=== PATIENT | male | born 1955 | race Caucasian/White ===

== ENCOUNTER 2019-02-09 14:58 | Inpatient (IN) | payer MEDICARE, MEDICAID ==
[~2019-02-09] VITALS: Ht 170.2 cm; Wt 73.8 kg
[2019-02-09] MEDS ORDERED: NIFE30TA5 PO (15:18)
[2019-02-09] MEDS ORDERED: PANT40TA25 PO (15:18)
[2019-02-09] MEDS ORDERED: CARV3 PO (15:18)
[2019-02-09] MEDS ORDERED: SUCR1TAB PO (15:18)
[2019-02-09] MEDS ORDERED: APIX5TAB PO (15:18)
[2019-02-09] MEDS ORDERED: FOLI0.8T22 PO (15:18)
[2019-02-09 16:08] LABS: EOSINOPHILS % (AUTO) 2.6 % (1.0-6.0); HEMATOCRIT 23.2 % (41-53); HEMOGLOBIN 7.3 g/dL (13.5-17.5); LYMPHOCYTES # (AUTO) 0.5 K/uL (1.0-4.8); LYMPHOCYTES % (AUTO) 9.2 % (22.0-44.0); MEAN CORPUSCULAR HEMOGLOBIN 30.1 pg (26.0-34.0); MEAN CORPUSCULAR HGB CONC 31.3 G/dL (31.0-37.0); MEAN CORPUSCULAR VOLUME 96 fL (80-100); MONOCYTES # (AUTO) 0.4 K/uL (0.1-1.0); MONOCYTES % (AUTO) 6.3 % (2.0-9.0); NEUTROPHILS # (AUTO) 4.7 K/uL (1.8-7.7); NEUTROPHILS % (AUTO) 80.9 % (40.0-70.0); PLATELET COUNT (AUTO) 122 K/uL (150-450); RED BLOOD CELL COUNT(AUTO) 2.41 MIL/uL (4.50-5.90); RED CELL DISTRIBUTION WIDTH 19.6 % (11.5-14.5)
[2019-02-09 16:20] LABS: CALCIUM, TOTAL 8.2 mg/dL (8.8-10.5); CREATININE 6.66 mg/dL (0.60-1.30)
[2019-02-09 16:26] LABS: ALBUMIN 2.1 g/dL (3.4-5.0); BILIRUBIN,TOTAL 0.7 mg/dL (0.1-1.0); TOTAL PROTEIN, SERUM 7.2 g/dL (6.4-8.2)
[2019-02-09 16:29] LABS: LACTIC ACID 0.9 mmol/L (0.4-2.0)
[2019-02-09] MEDS ORDERED: VANCOMYCIN HCL 1 GM/D5% WATER 200 ML IV ONE (17:00)
[2019-02-09] MEDS ORDERED: 0.9% SODIUM CHLORIDE 10 ML SYRINGE IVP PRN (17:00)
[2019-02-09] MEDS ORDERED: ONDANSETRON HCL 4 MG/2 ML VIAL IVP PRN (17:00)
[2019-02-09] MEDS ORDERED: ACETAMINOPHEN 325 MG TABLET PO PRN (17:00)
[2019-02-09 20:25] VITALS: BP 149/90
[2019-02-10 00:40] VITALS: BP 156/82
[2019-02-10] MEDS ORDERED: OxyCODONE HCL/ACETAMINOPHEN 5-325 MG TABLET PO PRN (02:45)
[2019-02-10] MEDS ORDERED: 0.9% SODIUM CHLORIDE 10 ML SYRINGE IVP PRN (02:45)
[2019-02-10] MEDS ORDERED: VANCOMYCIN HCL 1 GM/D5% WATER 200 ML IV PRN (03:30)
[2019-02-10] MEDS: OxyCODONE HCL/ACETAMINOPHEN 5-325 MG TABLET PO PRN (03:42)
[2019-02-10 03:49] VITALS: BP 149/87
[2019-02-10 07:28] VITALS: BP 167/88
[2019-02-10] MEDS ORDERED: FAMOTIDINE 20 MG TABLET PO SCH (09:00)
[2019-02-10] MEDS ORDERED: DOCUSATE SODIUM 100 MG CAPSULE PO SCH (09:00)
[2019-02-10 11:10] VITALS: BP 152/78
[2019-02-10] MEDS ORDERED: ACETAMINOPHEN 325 MG TABLET PO PRN (11:45)
[2019-02-10] MEDS ORDERED: DOCUSATE SODIUM 100 MG CAPSULE PO PRN (11:45)
[2019-02-10] MEDS ORDERED: CefTRIAXone 1 GM/DEXTROSE 50 ML IV SCH (12:00)
[2019-02-10 12:15] LABS: BASOPHILS % (AUTO) 1.5 % (0.0-2.0); EOSINOPHILS % (AUTO) 4.5 % (1.0-6.0); HEMATOCRIT 22.8 % (41-53); HEMOGLOBIN 7.4 g/dL (13.5-17.5); LYMPHOCYTES # (AUTO) 0.6 K/uL (1.0-4.8); LYMPHOCYTES % (AUTO) 12.9 % (22.0-44.0); MEAN CORPUSCULAR HEMOGLOBIN 30.7 pg (26.0-34.0); MEAN CORPUSCULAR HGB CONC 32.4 G/dL (31.0-37.0); MEAN CORPUSCULAR VOLUME 95 fL (80-100); MONOCYTES # (AUTO) 0.3 K/uL (0.1-1.0); NEUTROPHILS # (AUTO) 3.6 K/uL (1.8-7.7); NEUTROPHILS % (AUTO) 75.1 % (40.0-70.0); PLATELET COUNT (AUTO) 111 K/uL (150-450); RED CELL DISTRIBUTION WIDTH 19.5 % (11.5-14.5)
[2019-02-10 12:35] LABS: CALCIUM, TOTAL 8.3 mg/dL (8.8-10.5); CREATININE 7.32 mg/dL (0.60-1.30); POTASSIUM 5.4 mmol/L (3.5-5.1)
[2019-02-10] MEDS ORDERED: SODIUM CHLORIDE 0.9% 500 ML IV ONE (12:39)
[2019-02-10] MEDS: PANTOPRAZOLE SODIUM 40 MG DR TABLET PO SCH (12:53)
[2019-02-10 13:14] LABS: % IRON SATURATION 30.4 % (30-44)
[2019-02-10 15:15] VITALS: BP 147/83
[2019-02-10] MEDS ORDERED: EPOETIN ALFA 10,000 UNITS/ML VIAL SQ ONE (15:30)
[2019-02-10] MEDS ORDERED: SODIUM POLYSTYRENE SULFONATE 15 GM/60 ML SUSPENSION BOTTLE PO ONE (16:00)
[2019-02-10] MEDS: FERROUS SULFATE 325 MG EC TABLET PO SCH (16:58)
[2019-02-10] MEDS: ONDANSETRON HCL 4 MG/2 ML VIAL IVP PRN (18:31)
[2019-02-10] MEDS: CefTAZidime PENTAHYDRATE 0.5 GM in DEXTROSE 5%-WATER 50 ML IV SCH (20:25)
[2019-02-10 20:28] VITALS: BP 151/82
[2019-02-11 05:15] VITALS: BP 148/86
[2019-02-11 06:03] LABS: BASOPHILS % (AUTO) 1.3 % (0.0-2.0); HEMATOCRIT 22.7 % (41-53); HEMOGLOBIN 7.5 g/dL (13.5-17.5); LYMPHOCYTES # (AUTO) 0.7 K/uL (1.0-4.8); LYMPHOCYTES % (AUTO) 12.7 % (22.0-44.0); MEAN CORPUSCULAR HEMOGLOBIN 31.1 pg (26.0-34.0); MEAN CORPUSCULAR HGB CONC 32.9 G/dL (31.0-37.0); MEAN CORPUSCULAR VOLUME 94 fL (80-100); MONOCYTES # (AUTO) 0.4 K/uL (0.1-1.0); MONOCYTES % (AUTO) 7.7 % (2.0-9.0); NEUTROPHILS # (AUTO) 3.9 K/uL (1.8-7.7); NEUTROPHILS % (AUTO) 75.3 % (40.0-70.0); PLATELET COUNT (AUTO) 112 K/uL (150-450); RED CELL DISTRIBUTION WIDTH 19.3 % (11.5-14.5)
[2019-02-11 06:17] LABS: CALCIUM, TOTAL 8.2 mg/dL (8.8-10.5); CREATININE 8.24 mg/dL (0.60-1.30); MAGNESIUM 2.2 mg/dL (1.80-2.40); PHOSPHORUS 8.6 mg/dL (2.5-4.9); VANCOMYCIN,RANDOM 23.7 mcg/mL (25.0-50.0)
[2019-02-11 06:34] LABS: POTASSIUM 5.9 mmol/L (3.5-5.1)
[2019-02-11] MEDS: FERROUS SULFATE 325 MG EC TABLET PO SCH (08:00)
[2019-02-11 08:26] VITALS: BP 145/89
[2019-02-11] MEDS: NIFEdipine 30 MG ER TABLET PO SCH ×2 (09:00→16:04)
[2019-02-11] MEDS: MULTIVITAMINS WITH MINERALS, THERAPEUTIC TABLET PO SCH (09:00)
[2019-02-11] MEDS: PANTOPRAZOLE SODIUM 40 MG DR TABLET PO SCH (09:00)
[2019-02-11 11:47] VITALS: BP 153/104
[2019-02-11 11:57] LABS: INR 1.1 (0.9-1.1); PROTHROMBIN TIME 11.6 SEC (9.4-11.6)
[2019-02-11] MEDS ORDERED: LIDOCAINE/PF 1% 5 ML VIAL ONE (13:43)
[2019-02-11] MEDS ORDERED: HEPARIN SODIUM 1000 UNITS/NS 500 ML ONE (13:43)
[2019-02-11] MEDS ORDERED: NALOXONE HCL 0.4 MG/ML VIAL ONE (13:54)
[2019-02-11] MEDS ORDERED: MIDAZOLAM HCL 2 MG/2 ML VIAL ONE (13:54)
[2019-02-11] MEDS ORDERED: FentaNYL CITRATE-PF 100 MCG/2 ML VIAL ONE (13:54)
[2019-02-11] MEDS ORDERED: IOHEXOL 180 MG/ML 20 ML VIAL ONE (14:44)
[2019-02-11] MEDS ORDERED: SODIUM ZIRCONIUM CYCLOSILICATE 5 GM POWDER PACKET PO ONE (15:00)
[2019-02-11] MEDS ORDERED: HEPARIN SODIUM,PORCINE 1,000 UNITS/ML 10 ML VIAL ONE (15:21)
[2019-02-11] MEDS: OxyCODONE HCL/ACETAMINOPHEN 5-325 MG TABLET PO PRN (16:04)
[2019-02-11] MEDS ORDERED: HEPARIN SODIUM,PORCINE 1,000 UNITS/ML VIAL IVP ONE (17:23)
[2019-02-11] MEDS ORDERED: CloNIDine HCL 0.1 MG TABLET PO ONE (17:45)
[2019-02-11] MEDS: SEVELAMER CARBONATE 800 MG TABLET PO SCH (18:05)
[2019-02-11] MEDS ORDERED: DESMOPRESSIN ACETATE 20 MCG in SODIUM CHLORIDE 0.9% 50 ML IV ONE (18:30)
[2019-02-11 19:16] LABS: BASOPHILS % (AUTO) 1.5 % (0.0-2.0); EOSINOPHILS % (AUTO) 1.9 % (1.0-6.0); HEMATOCRIT 24.3 % (41-53); HEMOGLOBIN 8.1 g/dL (13.5-17.5); LYMPHOCYTES # (AUTO) 0.6 K/uL (1.0-4.8); LYMPHOCYTES % (AUTO) 9.2 % (22.0-44.0); MEAN CORPUSCULAR HEMOGLOBIN 31.4 pg (26.0-34.0); MEAN CORPUSCULAR HGB CONC 33.3 G/dL (31.0-37.0); MEAN CORPUSCULAR VOLUME 94 fL (80-100); MONOCYTES # (AUTO) 0.3 K/uL (0.1-1.0); MONOCYTES % (AUTO) 5.6 % (2.0-9.0); NEUTROPHILS # (AUTO) 4.9 K/uL (1.8-7.7); NEUTROPHILS % (AUTO) 81.8 % (40.0-70.0); PLATELET COUNT (AUTO) 124 K/uL (150-450); RED BLOOD CELL COUNT(AUTO) 2.58 MIL/uL (4.50-5.90); RED CELL DISTRIBUTION WIDTH 19.3 % (11.5-14.5)
[2019-02-11] MEDS: CefTAZidime PENTAHYDRATE 0.5 GM in DEXTROSE 5%-WATER 50 ML IV SCH (20:16)
[2019-02-11] MEDS ORDERED: SODIUM CHLORIDE 0.9% 2,000 ML IV ONE (21:22)
[2019-02-12] VITALS (8 sets, daily range): BP systolic 114–157; BP diastolic 70–95
[2019-02-12] MEDS ORDERED: VANCOMYCIN HCL 1 GM/D5% WATER 200 ML IV ONE (04:00)
[2019-02-12 05:13] LABS: BASOPHILS % (AUTO) 1.4 % (0.0-2.0); EOSINOPHILS % (AUTO) 2.8 % (1.0-6.0); HEMATOCRIT 22.1 % (41-53); HEMOGLOBIN 7.2 g/dL (13.5-17.5); LYMPHOCYTES # (AUTO) 0.5 K/uL (1.0-4.8); LYMPHOCYTES % (AUTO) 11.1 % (22.0-44.0); MEAN CORPUSCULAR HEMOGLOBIN 30.7 pg (26.0-34.0); MEAN CORPUSCULAR HGB CONC 32.7 G/dL (31.0-37.0); MEAN CORPUSCULAR VOLUME 94 fL (80-100); MONOCYTES # (AUTO) 0.4 K/uL (0.1-1.0); MONOCYTES % (AUTO) 8.7 % (2.0-9.0); NEUTROPHILS # (AUTO) 3.6 K/uL (1.8-7.7); PLATELET COUNT (AUTO) 103 K/uL (150-450); RED BLOOD CELL COUNT(AUTO) 2.35 MIL/uL (4.50-5.90); RED CELL DISTRIBUTION WIDTH 19.1 % (11.5-14.5)
[2019-02-12 05:27] LABS: CALCIUM, TOTAL 8.4 mg/dL (8.8-10.5); CREATININE 7.01 mg/dL (0.60-1.30); POTASSIUM 5.2 mmol/L (3.5-5.1)
[2019-02-12] MEDS: SEVELAMER CARBONATE 800 MG TABLET PO SCH ×3 (07:32→17:30)
[2019-02-12] MEDS: PANTOPRAZOLE SODIUM 40 MG DR TABLET PO SCH (07:33)
[2019-02-12] MEDS: MULTIVITAMINS WITH MINERALS, THERAPEUTIC TABLET PO SCH (07:33)
[2019-02-12] MEDS: NIFEdipine 30 MG ER TABLET PO SCH (07:33)
[2019-02-12] MEDS ORDERED: FentaNYL CITRATE-PF 100 MCG/2 ML VIAL IVP ONE (12:00)
[2019-02-12] MEDS ORDERED: CALCIUM CHLORIDE 100 MG/ML 10 ML SYRINGE IVP ONE (12:00)
[2019-02-12] MEDS ORDERED: MIDAZOLAM HCL 2 MG/2 ML VIAL IVP ONE (12:00)
[2019-02-12] MEDS ORDERED: LIDOCAINE/PF 2% 5 ML VIAL INJ ONE (12:00)
[2019-02-12] MEDS ORDERED: HEPARIN SODIUM,PORCINE 1,000 UNITS/ML 10 ML VIAL IVP ONE (12:00)
[2019-02-12] MEDS ORDERED: EPHEDrine SULFATE 50 MG/ML VIAL IM ONE (12:00)
[2019-02-12] MEDS ORDERED: 0.9% SODIUM CHLORIDE 10 ML VIAL IVP ONE (12:00)
[2019-02-12] MEDS ORDERED: MORPHINE SULFATE 4 MG/ML SYRINGE IVP ONE (12:00)
[2019-02-12] MEDS: ONDANSETRON HCL 4 MG/2 ML VIAL IVP PRN (12:23)
[2019-02-12] MEDS ORDERED: LIDOCAINE/PF 1% 30 ML VIAL ONE (13:39)
[2019-02-12] MEDS ORDERED: SODIUM CHLORIDE 0.9% 500 ML IV ONE (13:58)
[2019-02-12] MEDS ORDERED: BACITRACIN 50,000 UNITS/VIAL ONE ×2 (14:50→17:27)
[2019-02-12] MEDS ORDERED: SODIUM CHLORIDE 0.9% 1,000 ML IV ONE (15:40)
[2019-02-12] MEDS ORDERED: FentaNYL CITRATE-PF 100 MCG/2 ML VIAL IVP PRN (16:15)
[2019-02-12] MEDS ORDERED: HYDROmorphone 2 MG/ML SYRINGE IVP PRN (16:15)
[2019-02-12] MEDS ORDERED: MEPERIDINE-PF 25 MG/ML VIAL IVP PRN (16:15)
[2019-02-12] MEDS ORDERED: TRANEXAMIC ACID 1,000 MG in DEXTROSE 5%-WATER 50 ML IV ONE (16:30)
[2019-02-12] MEDS ORDERED: SODIUM BICARBONATE [ADULT] 8.4% 50 MEQ/50 ML SYRINGE IVP ONE (16:32)
[2019-02-12 17:16] LABS: ABG A-A DIFF O2 537.9 mmHg (10-20.0); ABG BASE EXCESS -1.8 mmol/L (-2.0-3.0); ABG CARBOXYHEMOGLOBIN 0.7 % (0.0-1.5); ABG HCO3 23.2 mmol/L (22.0-26.0); ABG METHEMOGLOBIN 0.3 % (0.0-1.5); ABG OXYGEN SATURATION 98.9 % (95.0-98.0); ABG OXYHEMOGLOBIN 97.9 % (94.0-100.0); ABG PCO2 36 mmHg (35-45); ABG PH 7.415 (7.35-7.450); ABG TOTAL HEMOGLOBIN 9.2 G/dL (12.0-18.0); PO2, ARTERIAL BG 140.8 mmHg (79.0-87.0); SOURCE, BLOOD GAS ARTERIAL; TEMPERATURE, FAHRENHEIT, BG 97.2 FAHREN (96.0-98.6)
[2019-02-12 17:18] LABS: SITE, BLOOD GAS RT RADIAL
[2019-02-12 17:19] LABS: O2 DEVICE,BLOOD GAS VENTILATOR (ROOM AIR); PEEP,BG 5 cm H2O; VT, ABG 600 ml
[2019-02-12] MEDS ORDERED: SODIUM CL IRRIG SOLN BAG 3,000 ML IRRIG ONE (17:28)
[2019-02-12] MEDS ORDERED: PROTAMINE SULFATE 10 MG/ML 5 ML VIAL IVP ONE (17:45)
[2019-02-12] MEDS ORDERED: PROTAMINE SULFATE 10 MG/ML 5 ML VIAL ONE (17:48)
[2019-02-12] MEDS ORDERED: SODIUM CHLORIDE 0.9% 50 ML ONE (17:50)
[2019-02-12] MEDS ORDERED: SUGAMMADEX SODIUM 200 MG/2 ML VIAL IVP ONE (17:56)
[2019-02-12] MEDS: CefTRIAXone SODIUM 2 GM in DEXTROSE 5%-WATER 50 ML IV SCH (18:00)
[2019-02-12] MEDS ORDERED: DESMOPRESSIN ACETATE 20 MCG in SODIUM CHLORIDE 0.9% 50 ML IV ONE (18:15)
[2019-02-12] MEDS: OXYGEN THERAPY IH SCH (20:00)
[2019-02-12 20:02] LABS: CALCIUM, TOTAL 8.9 mg/dL (8.8-10.5); CREATININE 7.6 mg/dL (0.60-1.30); INR 1.3 (0.9-1.1); POTASSIUM 5.7 mmol/L (3.5-5.1); PROTHROMBIN TIME 12.7 SEC (9.4-11.6)
[2019-02-12 20:06] LABS: BASOPHILS % (AUTO) 1.2 % (0.0-2.0); EOSINOPHILS % (AUTO) 1.9 % (1.0-6.0); HEMATOCRIT 28.8 % (41-53); HEMOGLOBIN 9.2 g/dL (13.5-17.5); LYMPHOCYTES # (AUTO) 1.7 K/uL (1.0-4.8); LYMPHOCYTES % (AUTO) 15.4 % (22.0-44.0); MEAN CORPUSCULAR HEMOGLOBIN 30.4 pg (26.0-34.0); MEAN CORPUSCULAR HGB CONC 31.8 G/dL (31.0-37.0); MEAN CORPUSCULAR VOLUME 96 fL (80-100); MONOCYTES # (AUTO) 0.7 K/uL (0.1-1.0); MONOCYTES % (AUTO) 6.2 % (2.0-9.0); NEUTROPHILS # (AUTO) 8.3 K/uL (1.8-7.7); NEUTROPHILS % (AUTO) 75.3 % (40.0-70.0); PLATELET COUNT (AUTO) 138 K/uL (150-450); RED BLOOD CELL COUNT(AUTO) 3.02 MIL/uL (4.50-5.90); RED CELL DISTRIBUTION WIDTH 18.8 % (11.5-14.5)
[2019-02-12 20:08] LABS: BILIRUBIN,TOTAL 0.9 mg/dL (0.1-1.0); TOTAL PROTEIN, SERUM 6.9 g/dL (6.4-8.2)
[2019-02-12 20:31] LABS: FIBRINOGEN 216 mg/dL (200-400)
[2019-02-12 20:51] LABS: FIBRIN SPLIT PRODUCTS Greater than 40 mcg/mL (<10)
[2019-02-12] MEDS ORDERED: SODIUM CHLORIDE 0.9% 2,000 ML ONE (22:20)
[2019-02-13] VITALS: BP 150/88
[2019-02-13 04:00] VITALS: BP 154/100
[2019-02-13 05:50] LABS: EOSINOPHILS % (AUTO) 1.5 % (1.0-6.0); HEMATOCRIT 22.6 % (41-53); HEMOGLOBIN 7.6 g/dL (13.5-17.5); LYMPHOCYTES # (AUTO) 0.6 K/uL (1.0-4.8); LYMPHOCYTES % (AUTO) 8.3 % (22.0-44.0); MEAN CORPUSCULAR HEMOGLOBIN 30.7 pg (26.0-34.0); MEAN CORPUSCULAR HGB CONC 33.4 G/dL (31.0-37.0); MEAN CORPUSCULAR VOLUME 92 fL (80-100); MONOCYTES # (AUTO) 0.4 K/uL (0.1-1.0); MONOCYTES % (AUTO) 6.1 % (2.0-9.0); NEUTROPHILS # (AUTO) 5.5 K/uL (1.8-7.7); NEUTROPHILS % (AUTO) 83.1 % (40.0-70.0); PLATELET COUNT (AUTO) 112 K/uL (150-450); RED BLOOD CELL COUNT(AUTO) 2.47 MIL/uL (4.50-5.90); RED CELL DISTRIBUTION WIDTH 17.1 % (11.5-14.5)
[2019-02-13 06:00] LABS: CALCIUM, TOTAL 8.3 mg/dL (8.8-10.5); CREATININE 6.45 mg/dL (0.60-1.30); POTASSIUM 5.5 mmol/L (3.5-5.1)
[2019-02-13 08:00] VITALS: BP 184/105
[2019-02-13] MEDS: OXYGEN THERAPY IH SCH ×2 (08:00→20:00)
[2019-02-13] MEDS: PANTOPRAZOLE SODIUM 40 MG DR TABLET PO SCH (08:13)
[2019-02-13] MEDS: MULTIVITAMINS WITH MINERALS, THERAPEUTIC TABLET PO SCH (08:13)
[2019-02-13] MEDS: NIFEdipine 30 MG ER TABLET PO SCH (08:13)
[2019-02-13] MEDS: SEVELAMER CARBONATE 800 MG TABLET PO SCH ×3 (08:13→18:22)
[2019-02-13] MEDS: HydrALAZINE HCL 20 MG/ML VIAL IVP PRN (08:14)
[2019-02-13] MEDS ORDERED: SODIUM CITRATE 4% CATH FLUSH 5 ML SYRINGE IVP ONE ×2 (11:45)
[2019-02-13 12:00] VITALS: BP 163/101
[2019-02-13] MEDS ORDERED: SODIUM CHLORIDE 0.9% 2,000 ML ONE (12:12)
[2019-02-13] MEDS ORDERED: LEVOFLOXACIN 250 MG TABLET PO ONE (15:30)
[2019-02-13 16:00] VITALS: BP 133/75
[2019-02-13] MEDS: CefTRIAXone SODIUM 2 GM in DEXTROSE 5%-WATER 50 ML IV SCH (18:23)
[2019-02-13 20:00] VITALS: BP 125/81
[2019-02-14] VITALS (16 sets, daily range): BP systolic 126–169; BP diastolic 79–108
[2019-02-14] MEDS: OxyCODONE HCL/ACETAMINOPHEN 5-325 MG TABLET PO PRN (02:36)
[2019-02-14 05:39] LABS: BASOPHILS % (AUTO) 0.8 % (0.0-2.0); LYMPHOCYTES # (AUTO) 0.6 K/uL (1.0-4.8); LYMPHOCYTES % (AUTO) 11.8 % (22.0-44.0); MEAN CORPUSCULAR HEMOGLOBIN 31.9 pg (26.0-34.0); MEAN CORPUSCULAR HGB CONC 34.6 G/dL (31.0-37.0); MEAN CORPUSCULAR VOLUME 92 fL (80-100); MONOCYTES # (AUTO) 0.4 K/uL (0.1-1.0); MONOCYTES % (AUTO) 9.4 % (2.0-9.0); NEUTROPHILS # (AUTO) 3.5 K/uL (1.8-7.7); PLATELET COUNT (AUTO) 114 K/uL (150-450); RED BLOOD CELL COUNT(AUTO) 1.96 MIL/uL (4.50-5.90); RED CELL DISTRIBUTION WIDTH 17.6 % (11.5-14.5)
[2019-02-14 05:43] LABS: HEMOGLOBIN 6.2 g/dL (13.5-17.5)
[2019-02-14 05:45] LABS: CALCIUM, TOTAL 8.2 mg/dL (8.8-10.5); CREATININE 5.26 mg/dL (0.60-1.30); POTASSIUM 4.8 mmol/L (3.5-5.1)
[2019-02-14] MEDS: OXYGEN THERAPY IH SCH ×2 (08:00→20:00)
[2019-02-14] MEDS: PANTOPRAZOLE SODIUM 40 MG DR TABLET PO SCH (08:14)
[2019-02-14] MEDS: SEVELAMER CARBONATE 800 MG TABLET PO SCH ×3 (08:14→18:27)
[2019-02-14] MEDS: MULTIVITAMINS WITH MINERALS, THERAPEUTIC TABLET PO SCH (08:14)
[2019-02-14] MEDS: NIFEdipine 30 MG ER TABLET PO SCH (08:15)
[2019-02-14] MEDS ORDERED: SODIUM CHLORIDE 0.9% 250 ML IV ONE (10:42)
[2019-02-14] MEDS: HydrALAZINE HCL 20 MG/ML VIAL IVP PRN (14:27)
[2019-02-14 17:51] LABS: BASOPHILS % (AUTO) 0.4 % (0.0-2.0); EOSINOPHILS % (AUTO) 1.9 % (1.0-6.0); HEMATOCRIT 24.1 % (41-53); HEMOGLOBIN 8.1 g/dL (13.5-17.5); LYMPHOCYTES # (AUTO) 0.5 K/uL (1.0-4.8); MEAN CORPUSCULAR HEMOGLOBIN 31.2 pg (26.0-34.0); MEAN CORPUSCULAR HGB CONC 33.8 G/dL (31.0-37.0); MEAN CORPUSCULAR VOLUME 92 fL (80-100); MONOCYTES # (AUTO) 0.4 K/uL (0.1-1.0); MONOCYTES % (AUTO) 7.1 % (2.0-9.0); NEUTROPHILS # (AUTO) 4.3 K/uL (1.8-7.7); NEUTROPHILS % (AUTO) 81.6 % (40.0-70.0); PLATELET COUNT (AUTO) 128 K/uL (150-450); RED BLOOD CELL COUNT(AUTO) 2.61 MIL/uL (4.50-5.90); RED CELL DISTRIBUTION WIDTH 17.4 % (11.5-14.5)
[2019-02-14] MEDS: CefTRIAXone SODIUM 2 GM in DEXTROSE 5%-WATER 50 ML IV SCH (18:25)
[2019-02-15] VITALS (9 sets, daily range): BP systolic 135–181; BP diastolic 72–111
[2019-02-15 07:36] LABS: HEMATOCRIT 21.8 % (41-53); HEMOGLOBIN 7.3 g/dL (13.5-17.5); MEAN CORPUSCULAR HEMOGLOBIN 30.9 pg (26.0-34.0); MEAN CORPUSCULAR HGB CONC 33.5 G/dL (31.0-37.0); MEAN CORPUSCULAR VOLUME 92 fL (80-100); NEUTROPHILS % (AUTO) 81.5 % (40.0-70.0); PLATELET COUNT (AUTO) 136 K/uL (150-450); RED BLOOD CELL COUNT(AUTO) 2.36 MIL/uL (4.50-5.90); RED CELL DISTRIBUTION WIDTH 17.3 % (11.5-14.5)
[2019-02-15 07:37] LABS: BASOPHILS % (AUTO) 0.9 % (0.0-2.0); EOSINOPHILS % (AUTO) 3.7 % (1.0-6.0); LYMPHOCYTES # (AUTO) 0.4 K/uL (1.0-4.8); LYMPHOCYTES % (AUTO) 7.6 % (22.0-44.0); MONOCYTES # (AUTO) 0.3 K/uL (0.1-1.0); MONOCYTES % (AUTO) 6.3 % (2.0-9.0); NEUTROPHILS # (AUTO) 4.1 K/uL (1.8-7.7)
[2019-02-15 07:46] LABS: CALCIUM, TOTAL 8.7 mg/dL (8.8-10.5); CREATININE 6.68 mg/dL (0.60-1.30); POTASSIUM 4.9 mmol/L (3.5-5.1)
[2019-02-15] MEDS: OXYGEN THERAPY IH SCH ×2 (08:00→20:00)
[2019-02-15] MEDS: SEVELAMER CARBONATE 800 MG TABLET PO SCH ×3 (08:00→18:20)
[2019-02-15] MEDS: LEVOFLOXACIN 500 MG TABLET PO SCH (10:09)
[2019-02-15] MEDS: PANTOPRAZOLE SODIUM 40 MG DR TABLET PO SCH (10:09)
[2019-02-15] MEDS: MULTIVITAMINS WITH MINERALS, THERAPEUTIC TABLET PO SCH (10:13)
[2019-02-15] MEDS: NIFEdipine 30 MG ER TABLET PO SCH ×2 (10:14→21:22)
[2019-02-15] MEDS: HydrALAZINE HCL 20 MG/ML VIAL IVP PRN (10:52)
[2019-02-15] MEDS: CefTRIAXone SODIUM 2 GM in DEXTROSE 5%-WATER 50 ML IV SCH (18:20)
[2019-02-16] VITALS (14 sets, daily range): BP systolic 131–187; BP diastolic 71–111
[2019-02-16 06:40] LABS: BASOPHILS % (AUTO) 0.7 % (0.0-2.0); EOSINOPHILS % (AUTO) 4.2 % (1.0-6.0); HEMATOCRIT 22.8 % (41-53); HEMOGLOBIN 7.8 g/dL (13.5-17.5); LYMPHOCYTES # (AUTO) 0.5 K/uL (1.0-4.8); LYMPHOCYTES % (AUTO) 8.6 % (22.0-44.0); MEAN CORPUSCULAR HEMOGLOBIN 31.5 pg (26.0-34.0); MEAN CORPUSCULAR HGB CONC 34.2 G/dL (31.0-37.0); MEAN CORPUSCULAR VOLUME 92 fL (80-100); MONOCYTES # (AUTO) 0.3 K/uL (0.1-1.0); NEUTROPHILS # (AUTO) 4.7 K/uL (1.8-7.7); NEUTROPHILS % (AUTO) 80.5 % (40.0-70.0); PLATELET COUNT (AUTO) 156 K/uL (150-450); RED BLOOD CELL COUNT(AUTO) 2.47 MIL/uL (4.50-5.90); RED CELL DISTRIBUTION WIDTH 17.1 % (11.5-14.5)
[2019-02-16 06:50] LABS: CALCIUM, TOTAL 8.7 mg/dL (8.8-10.5); POTASSIUM 5.2 mmol/L (3.5-5.1)
[2019-02-16] MEDS: OXYGEN THERAPY IH SCH (08:20)
[2019-02-16] MEDS: SEVELAMER CARBONATE 800 MG TABLET PO SCH ×3 (08:21→18:49)
[2019-02-16] MEDS: NIFEdipine 30 MG ER TABLET PO SCH ×2 (09:00→18:40)
[2019-02-16] MEDS ORDERED: SODIUM CL IRRIG SOLN BOTTLE 250 ML IRRIG ONE (09:13)
[2019-02-16] MEDS ORDERED: RANITIDINE HCL IV ONE (10:00)
[2019-02-16] MEDS ORDERED: DEXTROSE 5% IV ONE (10:00)
[2019-02-16] MEDS ORDERED: WATER IV ONE (10:00)
[2019-02-16] MEDS ORDERED: ALTEPLASE 2 MG/VIAL IVCATH STA (12:06)
[2019-02-16] MEDS ORDERED: SODIUM POLYSTYRENE SULFONATE 15 GM/60 ML SUSPENSION BOTTLE PO ONE (13:15)
[2019-02-16 13:18] LABS: INR 1.2 (0.9-1.1); PROTHROMBIN TIME 12.2 SEC (9.4-11.6)
[2019-02-16] MEDS ORDERED: SODIUM CHLORIDE 0.9% 250 ML IV ONE (15:38)
[2019-02-16] MEDS: SENNA 187 MG TABLET PO SCH ×2 (18:39→20:22)
[2019-02-16] MEDS: MULTIVITAMINS WITH MINERALS, THERAPEUTIC TABLET PO SCH (18:40)
[2019-02-16] MEDS: PANTOPRAZOLE SODIUM 40 MG DR TABLET PO SCH (18:40)
[2019-02-16] MEDS: HydrALAZINE HCL 20 MG/ML VIAL IVP PRN (20:21)
[2019-02-16] MEDS: CefTRIAXone SODIUM 2 GM in DEXTROSE 5%-WATER 50 ML IV SCH (20:21)
[2019-02-16] MEDS: OxyCODONE HCL/ACETAMINOPHEN 5-325 MG TABLET PO PRN (23:17)
[2019-02-17] VITALS (11 sets, daily range): BP systolic 117–185; BP diastolic 69–121
[2019-02-17 06:19] LABS: BASOPHILS % (AUTO) 0.8 % (0.0-2.0); EOSINOPHILS % (AUTO) 4.4 % (1.0-6.0); HEMOGLOBIN 8.8 g/dL (13.5-17.5); LYMPHOCYTES # (AUTO) 0.5 K/uL (1.0-4.8); LYMPHOCYTES % (AUTO) 9.2 % (22.0-44.0); MEAN CORPUSCULAR HEMOGLOBIN 30.5 pg (26.0-34.0); MEAN CORPUSCULAR HGB CONC 33.7 G/dL (31.0-37.0); MEAN CORPUSCULAR VOLUME 90 fL (80-100); MONOCYTES # (AUTO) 0.3 K/uL (0.1-1.0); MONOCYTES % (AUTO) 5.8 % (2.0-9.0); NEUTROPHILS # (AUTO) 4.2 K/uL (1.8-7.7); NEUTROPHILS % (AUTO) 79.8 % (40.0-70.0); PLATELET COUNT (AUTO) 163 K/uL (150-450); RED BLOOD CELL COUNT(AUTO) 2.87 MIL/uL (4.50-5.90); RED CELL DISTRIBUTION WIDTH 18.7 % (11.5-14.5)
[2019-02-17 06:30] LABS: CALCIUM, TOTAL 8.8 mg/dL (8.8-10.5); CREATININE 9.24 mg/dL (0.60-1.30); POTASSIUM 4.9 mmol/L (3.5-5.1)
[2019-02-17] MEDS: SEVELAMER CARBONATE 800 MG TABLET PO SCH ×3 (08:00→18:31)
[2019-02-17] MEDS ORDERED: IOHEXOL 240 MG/ML 20 ML VIAL ONE ×2 (08:52→10:39)
[2019-02-17] MEDS ORDERED: HEPARIN SODIUM 1000 UNITS/NS 500 ML ONE (08:53)
[2019-02-17] MEDS ORDERED: HEPARIN SODIUM,PORCINE 1,000 UNITS/ML 10 ML VIAL ONE ×2 (08:53→10:36)
[2019-02-17] MEDS ORDERED: LIDOCAINE 1%/EPI 1:200,000/PF 10 ML VIAL ONE ×2 (08:54→10:36)
[2019-02-17] MEDS: NIFEdipine 30 MG ER TABLET PO SCH ×2 (09:00→16:38)
[2019-02-17] MEDS: LEVOFLOXACIN 500 MG TABLET PO SCH ×2 (09:00→18:24)
[2019-02-17] MEDS: SENNA 187 MG TABLET PO SCH ×2 (09:00→20:04)
[2019-02-17] MEDS: PANTOPRAZOLE SODIUM 40 MG DR TABLET PO SCH (09:00)
[2019-02-17] MEDS: MULTIVITAMINS WITH MINERALS, THERAPEUTIC TABLET PO SCH (09:00)
[2019-02-17] MEDS ORDERED: NALOXONE HCL 0.4 MG/ML VIAL ONE (09:04)
[2019-02-17] MEDS ORDERED: FentaNYL CITRATE-PF 100 MCG/2 ML VIAL ONE ×2 (09:04→10:35)
[2019-02-17] MEDS ORDERED: MIDAZOLAM HCL 2 MG/2 ML VIAL ONE ×2 (09:04→10:36)
[2019-02-17] MEDS ORDERED: SODIUM CHLORIDE 0.9% 250 ML IV ONE (09:45)
[2019-02-17] MEDS ORDERED: MIDAZOLAM HCL 2 MG/2 ML VIAL IVP ONE ×2 (10:01→10:59)
[2019-02-17] MEDS ORDERED: FentaNYL CITRATE-PF 100 MCG/2 ML VIAL IVP ONE ×2 (10:03→10:58)
[2019-02-17] MEDS ORDERED: VANCOMYCIN HCL 1 GM/D5% WATER 200 ML IV PRN (11:45)
[2019-02-17] MEDS ORDERED: VANCOMYCIN HCL 1.5 GM in DEXTROSE 5%-WATER 250 ML IV ONE (12:00)
[2019-02-17] MEDS ORDERED: SODIUM CHLORIDE 0.9% 1,000 ML ONE ×2 (13:40→13:47)
[2019-02-17] MEDS ORDERED: SODIUM CITRATE 4% CATH FLUSH 5 ML SYRINGE IVP ONE ×2 (14:45)
[2019-02-17] MEDS: HydrALAZINE HCL 20 MG/ML VIAL IVP PRN (20:04)
[2019-02-17] MEDS: OxyCODONE HCL/ACETAMINOPHEN 5-325 MG TABLET PO PRN (21:53)
[2019-02-18 00:21] VITALS: BP 164/106
[2019-02-18 05:31] VITALS: BP 149/101
[2019-02-18] MEDS: OXYGEN THERAPY IH SCH (08:00)
[2019-02-18] MEDS ORDERED: SODIUM CITRATE 4% CATH FLUSH 5 ML SYRINGE IVP ONE ×2 (08:15)
[2019-02-18] MEDS: SEVELAMER CARBONATE 800 MG TABLET PO SCH ×2 (09:38→12:00)
[2019-02-18] MEDS: PANTOPRAZOLE SODIUM 40 MG DR TABLET PO SCH (09:39)
[2019-02-18] MEDS: SENNA 187 MG TABLET PO SCH (09:39)
[2019-02-18] MEDS: MULTIVITAMINS WITH MINERALS, THERAPEUTIC TABLET PO SCH (09:39)
[2019-02-18] MEDS: NIFEdipine 30 MG ER TABLET PO SCH (09:39)
[2019-02-18] MEDS ORDERED: SEVE800T17 PO (10:28)
[2019-02-18] MEDS ORDERED: LEVO500 PO (10:28)
[2019-02-18] MEDS ORDERED: VANC1PIG IV (10:37)
[2019-02-18] MEDS ORDERED: VANCOMYCIN HCL 500 MG in DEXTROSE 5%-WATER 100 ML IV ONE (10:45)
[2019-02-18 12:28] VITALS: BP 166/105
== END 2019-02-18 15:30 | DRG 252 ==
LOC: EMS 15:00 → 4E 18:33 → ICU 02-11 18:55 → 5S 02-14 18:55
PROVIDERS: ADMIT Internal Medicine; ATTEND Internal Medicine
PROC: 0JBL0ZZ Excision of Right Upper Leg Subcutaneous Tissue and Fascia, Open Approach (ICD-10-PCS; principal; 2019-02-11)
PROC: 04QK0ZZ Repair Right Femoral Artery, Open Approach (ICD-10-PCS; 2019-02-11)
PROC: 05HY33Z Insertion of Infusion Device into Upper Vein, Percutaneous Approach (ICD-10-PCS; 2019-02-11)
PROC: B54NZZA Ultrasonography of Left Upper Extremity Veins, Guidance (ICD-10-PCS; 2019-02-11)
PROC: B51N1ZZ Fluoroscopy of Left Upper Extremity Veins using Low Osmolar Contrast (ICD-10-PCS; 2019-02-11)
PROC: 5A1D70Z Performance of Urinary Filtration, Intermittent, Less than 6 Hours Per Day (ICD-10-PCS; 2019-02-11)
PROC: 02HV33Z Insertion of Infusion Device into Superior Vena Cava, Percutaneous Approach (ICD-10-PCS; 2019-02-11)
PROC: B5181ZA Fluoroscopy of Superior Vena Cava using Low Osmolar Contrast, Guidance (ICD-10-PCS; 2019-02-11)
PROC: B548ZZA Ultrasonography of Superior Vena Cava, Guidance (ICD-10-PCS; 2019-02-11)
PROC: 30233N1 Transfusion of Nonautologous Red Blood Cells into Peripheral Vein, Percutaneous Approach (ICD-10-PCS; 2019-02-12)
PROC: 5A1D70Z Performance of Urinary Filtration, Intermittent, Less than 6 Hours Per Day (ICD-10-PCS; 2019-02-12)
PROC: 5A1D70Z Performance of Urinary Filtration, Intermittent, Less than 6 Hours Per Day (ICD-10-PCS; 2019-02-13)
PROC: 30233N1 Transfusion of Nonautologous Red Blood Cells into Peripheral Vein, Percutaneous Approach (ICD-10-PCS; 2019-02-14)
PROC: 30233N1 Transfusion of Nonautologous Red Blood Cells into Peripheral Vein, Percutaneous Approach (ICD-10-PCS; 2019-02-16)
PROC: 5A1D70Z Performance of Urinary Filtration, Intermittent, Less than 6 Hours Per Day (ICD-10-PCS; 2019-02-16)
PROC: 0JHP3XZ Insertion of Tunneled Vascular Access Device into Left Lower Leg Subcutaneous Tissue and Fascia, Percutaneous Approach (ICD-10-PCS; 2019-02-17)
PROC: 06H033Z Insertion of Infusion Device into Inferior Vena Cava, Percutaneous Approach (ICD-10-PCS; 2019-02-17)
PROC: B5191ZA Fluoroscopy of Inferior Vena Cava using Low Osmolar Contrast, Guidance (ICD-10-PCS; 2019-02-17)
PROC: 5A1D70Z Performance of Urinary Filtration, Intermittent, Less than 6 Hours Per Day (ICD-10-PCS; 2019-02-17)
PROC: 0XJ73ZZ Inspection of Left Upper Extremity, Percutaneous Approach (ICD-10-PCS; 2019-02-17)
PROC: B549ZZA Ultrasonography of Inferior Vena Cava, Guidance (ICD-10-PCS; 2019-02-17)
PROC: 5A1D70Z Performance of Urinary Filtration, Intermittent, Less than 6 Hours Per Day (ICD-10-PCS; 2019-02-18)
DX: T82.7XXA Infection and inflammatory reaction due to other cardiac and vascular devices, implants and grafts, initial encounter (principal); N18.6 End stage renal disease; E43 Unspecified severe protein-calorie malnutrition; L03.314 Cellulitis of groin; I12.0 Hypertensive chronic kidney disease with stage 5 chronic kidney disease or end stage renal disease; D63.1 Anemia in chronic kidney disease; K59.00 Constipation, unspecified; B96.1 Klebsiella pneumoniae [K. pneumoniae] as the cause of diseases classified elsewhere; E87.5 Hyperkalemia; I25.5 Ischemic cardiomyopathy; Z68.25 Body mass index [BMI] 25.0-25.9, adult; Z99.2 Dependence on renal dialysis; Y83.8 Other surgical procedures as the cause of abnormal reaction of the patient, or of later complication, without mention of misadventure at the time of the procedure; Y92.89 Other specified places as the place of occurrence of the external cause
CPT/HCPCS: 36245; 36556; 36561; 36600; 75825; 76000; 76937; 82728; 82805; 83540; 83550; 83605; 83735; 83970; 84100; 84145; 85362; 85384; 86850; 86900; 86901; 86920; 87015; 87040; 87070; 87081; 87101; 87205; 87206; 87252; 87340; 88304; 93306; 96365; 97116; 97162; G0378; J0360; J0690; J0696; J0713; J0885; J1644; J2001; J2250; J2270; J2310; J2405; J2597; J2720; J2780; J2997; J3010; J3370; J3490; J7030; J7040; J7050; J7060; P9016; Q9965; Q9966

== ENCOUNTER 2019-02-23 08:17 | Emergency (ER) | payer MEDICARE, MEDICAID ==
[~2019-02-23] VITALS: Ht 170.2 cm; Wt 76.5 kg
[~2019-02-23 08:17] MED LIST: APIX5TAB PO; CARV3 PO; FOLI0.8T22 PO; LEVO500 PO; NIFE30TA5 PO; PANT40TA25 PO; SEVE800T17 PO; SUCR1TAB PO; VANC1PIG IV
[2019-02-23] MEDS ORDERED: FOLI0.4T14 PO (08:26)
[2019-02-23] MEDS ORDERED: DESMOPRESSIN ACETATE 20 MCG in SODIUM CHLORIDE 0.9% 50 ML IV ONE (08:45)
[2019-02-23 08:46] LABS: BASOPHILS % (AUTO) 1.1 % (0.0-2.0); EOSINOPHILS % (AUTO) 5.5 % (1.0-6.0); LYMPHOCYTES # (AUTO) 2.5 K/uL (1.0-4.8); LYMPHOCYTES % (AUTO) 35.4 % (22.0-44.0); MEAN CORPUSCULAR HEMOGLOBIN 30.3 pg (26.0-34.0); MEAN CORPUSCULAR VOLUME 92 fL (80-100); MONOCYTES # (AUTO) 0.5 K/uL (0.1-1.0); MONOCYTES % (AUTO) 7.3 % (2.0-9.0); NEUTROPHILS # (AUTO) 3.5 K/uL (1.8-7.7); NEUTROPHILS % (AUTO) 50.7 % (40.0-70.0); PLATELET COUNT (AUTO) 147 K/uL (150-450); RED BLOOD CELL COUNT(AUTO) 2.15 MIL/uL (4.50-5.90); RED CELL DISTRIBUTION WIDTH 19.1 % (11.5-14.5)
[2019-02-23 08:47] LABS: HEMATOCRIT 19.7 % (41-53); HEMOGLOBIN 6.5 g/dL (13.5-17.5)
[2019-02-23 08:54] LABS: CREATININE 5.37 mg/dL (0.60-1.30); POTASSIUM 4.8 mmol/L (3.5-5.1)
[2019-02-23] MEDS ORDERED: TRANEXAMIC ACID 1,000 MG/10 ML VIAL IVP ONE (09:00)
[2019-02-23 09:02] LABS: ALBUMIN 1.7 g/dL (3.4-5.0); BILIRUBIN,TOTAL 0.5 mg/dL (0.1-1.0); TOTAL PROTEIN, SERUM 5.8 g/dL (6.4-8.2)
[2019-02-23 09:17] VITALS: BP 80/44
[2019-02-23 09:21] VITALS: BP 82/40
== END 2019-02-23 10:10 | disposition short-term general hospital (02) ==
LOC: EMS 08:20
DX: T82.838A Hemorrhage due to vascular prosthetic devices, implants and grafts, initial encounter (principal); I13.11 Hypertensive heart and chronic kidney disease without heart failure, with stage 5 chronic kidney disease, or end stage renal disease; Z79.01 Long term (current) use of anticoagulants; Z79.899 Other long term (current) drug therapy; Y84.1 Kidney dialysis as the cause of abnormal reaction of the patient, or of later complication, without mention of misadventure at the time of the procedure; Y73.8 Miscellaneous gastroenterology and urology devices associated with adverse incidents, not elsewhere classified
CPT/HCPCS: 36415; 36430; 80053; 85025; 86850; 86900; 86901; 86920; 96365; 96375; 99291; J2597; J3490; J7050; P9016